=== PATIENT | male | born 1970 | race Caucasian/White ===

== ENCOUNTER → 2016-09-01 | Outpatient (REF) | payer OTHER | LOC: M LAB REF 17:00 | PROVIDERS: ATTEND Internal Medicine Pulmonary Disease | DX: R05 Cough (principal); Z86.718 Personal history of other venous thrombosis and embolism ==

== ENCOUNTER → 2016-09-09 | Outpatient (CLI) | payer OTHER ==
[2016-09-09 11:02] LABS: ALBUMIN 3.7 GM/DL (3.2-5.2); ALBUMIN/GLOBULIN RATIO 1.06 (1.00-1.93); ALKALINE PHOSPHATASE 92 U/L (45-117); ALT/SGPT 34 U/L (12-78); ANION GAP 6 MEQ/L (8-16); AST/SGOT 17 U/L (15-37); BILIRUBIN,TOTAL 0.2 MG/DL (0.2-1.0); BLOOD UREA NITROGEN 16 MG/DL (7-18); CALCIUM LEVEL 8.9 MG/DL (8.5-10.1); CARBON DIOXIDE LEVEL 30 MEQ/L (21-32); CHLORIDE LEVEL 105 MEQ/L (98-107); CHOLESTEROL LEVEL 202 MG/DL (<200); CREATININE FOR GFR 1.14 MG/DL (0.70-1.30); GLOMERULAR FILTRATION RATE > 60.0 (>60); GLUCOSE, FASTING 90 MG/DL (70-105); POTASSIUM SERUM 4.3 MEQ/L (3.5-5.1); SODIUM LEVEL 141 MEQ/L (136-145); TOTAL PROTEIN 7.2 GM/DL (6.4-8.2); TRIGLYCERIDES LEVEL 291 MG/DL (<150)
--- NOTE | 2016-09-10 08:01 | ECGEPIP ---
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
== END ==
LOC: M LAB 09:37
PROVIDERS: ATTEND Family Medicine Addiction Medicine
DX: R07.89 Other chest pain (principal); I26.99 Other pulmonary embolism without acute cor pulmonale

== ENCOUNTER 2017-04-30 07:26 | Emergency (ER) | payer OTHER ==
[~2017-04-30] VITALS: Ht 182.9 cm; Wt 100.0 kg
[2017-04-30] MEDS ORDERED: methylPREDNISolone INJ 125 MG/2 ML VIAL (J2930) IV ONE (07:45)
[2017-04-30] MEDS ORDERED: ASPIRIN 81 MG CHEW TABLET PO ONE (07:45)
[2017-04-30] MEDS ORDERED: ALBUTEROL SULFATE 2.5 MG/0.5 ML INH NEB SOLN INH ONE (07:45)
[2017-04-30] MEDS ORDERED: IPRATROPIUM 0.5MG/ALBUTEROL 2.5MG INH SOL UD 3ML (DUONEB)(J7620) NEB ONE ×2 (07:45→14:15)
[2017-04-30 07:58] LABS: BASO # 0.2 10^3/uL (0.0-0.2); BASO % 1.8 % (0.0-1.0); EOS # 0.4 10^3/uL (0.0-0.50); EOS % 3.5 % (0.0-3.0); IMMATURE GRANULOCYTE % 0.3 % (0-0); LYMPH % 19.3 % (24.0-44.0); MEAN CORPUSCULAR HEMOGLOBIN 28.3 pg (27.0-33.0); MEAN CORPUSCULAR HGB CONC 33.1 g/dl (32.0-36.5); MEAN CORPUSCULAR VOLUME 85.5 fl (80.0-96.0); MONO # 1.1 10^3/uL (0.0-0.8); MONO % 10.1 % (0.0-5.0); NEUTROPHILS # 6.8 10^3/uL (1.8-7.7); PLATELET COUNT, AUTOMATED 329 10^3/uL (150-450); RED CELL DISTRIBUTION WIDTH 13.9 % (11.5-14.5); WHITE BLOOD COUNT 10.4 10^3/uL (4.0-10.0)
[2017-04-30 08:01] LABS: INR 0.86
[2017-04-30 08:26] LABS: ALBUMIN 3.8 GM/DL (3.2-5.2); ALBUMIN/GLOBULIN RATIO 1.09 (1.00-1.93); ALKALINE PHOSPHATASE 92 U/L (45-117); ALT/SGPT 41 U/L (12-78); ANION GAP 9 MEQ/L (8-16); AST/SGOT 23 U/L (7-37); BILIRUBIN,DIRECT < 0.1 MG/DL (0.0-0.2); BILIRUBIN,TOTAL 0.3 MG/DL (0.2-1.0); BLOOD UREA NITROGEN 13 MG/DL (7-18); CALCIUM LEVEL 8.5 MG/DL (8.5-10.1); CARBON DIOXIDE LEVEL 24 MEQ/L (21-32); CHLORIDE LEVEL 108 MEQ/L (98-107); CREATININE FOR GFR 0.91 MG/DL (0.70-1.30); GLOMERULAR FILTRATION RATE > 60.0 (>60); GLUCOSE, FASTING 105 MG/DL (70-105); POTASSIUM SERUM 4.6 MEQ/L (3.5-5.1); SODIUM LEVEL 141 MEQ/L (136-145); THYROXINE (T4) 11.3 UG/DL (4.5-12.0); TOTAL PROTEIN 7.3 GM/DL (6.4-8.2)
[2017-04-30] MEDS ORDERED: ISOVUE-370 76% 100ML VIAL (Q9967) As Ordered ONE (08:37)
--- NOTE | 2017-04-30 09:42 | REP ---
CT of the chest with IV contrast for pleuritic pain: There are no comparison chest CT studies. There are no infiltrates or effusions. There is a 9 mm pleural-based lung nodule in the right lower lobe on image 51. There is a 7 mm lung nodule in lingula on image 40. There is a 6 ml lung nodule in the superior segment of the left upper lobe on image 42. There is a mm lung nodule inferiorly in the lingula on image 51. There is right hilar adenopathy measuring up to 9 mm short axis. There is left hilar adenopathy measuring up to 9 mm short axis. There is no mediastinal adenopathy. No axillary adenopathy. The thoracic aorta is unremarkable. Cardiac size is upper normal. No pericardial effusion. There are no emboli in the pulmonary trunk, central pulmonary arteries or pulmonary artery lobe or segment branches. The visualized upper abdominal contents are unremarkable. The adrenals are not imaged in entirety. Impression: No pulmonary emboli. Multiple lung nodules. Bilateral hilar adenopathy. No infiltrate or effusion. Signed by Perez Elizabeth MD 04/30/2017 09:34 A
--- NOTE | 2017-04-30 09:51 | REP ---
Portable chest, 08:02 a.m., single AP view, the patient semi upright: Comparison 04/20/2016. The lung cardenas are clear. The cardiac size is normal. The peggy, mediastinum, and bony thorax are unremarkable. Impression: Negative portable chest. Signed by Perez Elizabeth MD 04/30/2017 09:43 A
[2017-04-30] MEDS ORDERED: ZITHTAB PO (14:08)
[2017-04-30] MEDS ORDERED: VENTAER IN (14:08)
[2017-04-30] MEDS ORDERED: ALBU83IN INH (14:08)
[2017-04-30] MEDS ORDERED: PRED20TA PO (14:08)
[2017-04-30] MEDS ORDERED: BREO1INH INH (14:23)
[2017-04-30 14:59] VITALS: BP 141/74
--- NOTE | 2017-04-30 19:33 | ECGEPIP ---
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
--- NOTE | 2017-04-30 19:41 | ECGEPIP ---
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
== END 2017-04-30 15:02 | disposition home or self-care (01) ==
LOC: M ED 07:26
DX: J45.901 Unspecified asthma with (acute) exacerbation (principal); J98.4 Other disorders of lung; F17.210 Nicotine dependence, cigarettes, uncomplicated; Z79.01 Long term (current) use of anticoagulants; Z86.711 Personal history of pulmonary embolism; Z88.8 Allergy status to other drugs, medicaments and biological substances
CPT/HCPCS: 71010; 71275; 80048; 80076; 82550; 82553; 83605; 84436; 84443; 85025; 85379; 85610; 87040; 87804; 93005; 93041; 94640; 94760; 96374; 99285; J2930; Q9967

== ENCOUNTER 2017-08-27 02:53 | Emergency (ER) | payer OTHER ==
[2017-08-27] MEDS: MORPHINE 2 MG/ML 1ML SYRINGE (J2270) IV (03:45)
[2017-08-27] MEDS: CYCLOBENZAPRINE 10 MG TAB PO (03:45)
[2017-08-27] MEDS: KETOROLAC 30 MG/ML VIAL (J1885) IV (03:45)
[2017-08-27] MEDS: NORCO 5/325MG TABLET (BULK FOR ED) PO (04:58)
== END 2017-08-27 05:12 | disposition home or self-care (01) ==
LOC: M ED 02:53
DX: M54.5 Low back pain (principal); X50.0XXA Overexertion from strenuous movement or load, initial encounter; Y92.89 Other specified places as the place of occurrence of the external cause; F17.210 Nicotine dependence, cigarettes, uncomplicated; Z88.8 Allergy status to other drugs, medicaments and biological substances; Z79.52 Long term (current) use of systemic steroids; Z79.51 Long term (current) use of inhaled steroids; Z79.2 Long term (current) use of antibiotics
CPT/HCPCS: J1885

== ENCOUNTER → 2017-09-27 | Outpatient (REF) | payer OTHER ==
[2017-09-27 13:28] LABS: ALBUMIN 3.9 GM/DL (3.2-5.2); ALBUMIN/GLOBULIN RATIO 1.18 (1.00-1.93); ALKALINE PHOSPHATASE 85 U/L (45-117); ALT/SGPT 29 U/L (12-78); ANION GAP 5 MEQ/L (8-16); AST/SGOT 19 U/L (7-37); BILIRUBIN,TOTAL 0.3 MG/DL (0.2-1.0); BLOOD UREA NITROGEN 14 MG/DL (7-18); CALCIUM LEVEL 8.8 MG/DL (8.5-10.1); CARBON DIOXIDE LEVEL 27 MEQ/L (21-32); CHLORIDE LEVEL 111 MEQ/L (98-107); CHOLESTEROL LEVEL 186 MG/DL (<200); CHOLESTEROL RISK RATIO 6.413 (<5); CREATININE FOR GFR 0.91 MG/DL (0.70-1.30); GLOMERULAR FILTRATION RATE > 60.0 (>60); GLUCOSE, FASTING 96 MG/DL (70-100); HDL CHOLESTEROL 29 MG/DL (>40); LDL CHOLESTEROL 113.4 MG/DL (<100); NON-HDL-C 157 MG/DL; POTASSIUM SERUM 4.4 MEQ/L (3.5-5.1); SODIUM LEVEL 143 MEQ/L (136-145); TOTAL PROTEIN 7.2 GM/DL (6.4-8.2); TRIGLYCERIDES LEVEL 218 MG/DL (<150)
== END ==
LOC: M LAB REF 12:10
DX: E03.8 Other specified hypothyroidism (principal)
CPT/HCPCS: 84443

== ENCOUNTER → 2018-04-03 | Outpatient (REF) | payer OTHER ==
[2018-04-03 18:34] LABS: BASO # 0.2 10^3/uL (0.0-0.2); BASO % 1.7 % (0.0-1.0); EOS # 0.2 10^3/uL (0.0-0.50); HEMATOCRIT 46.4 % (42.0-52.0); HEMOGLOBIN 15.2 g/dl (13.5-17.5); IMMATURE GRANULOCYTE % 0.4 % (0-3.0); LYMPH # 3.2 10^3/uL (1.5-4.5); LYMPH % 27.7 % (24.0-44.0); MEAN CORPUSCULAR HEMOGLOBIN 27.9 pg (27.0-33.0); MEAN CORPUSCULAR HGB CONC 32.8 g/dl (32.0-36.5); MEAN CORPUSCULAR VOLUME 85.1 fl (80.0-96.0); MONO # 0.7 10^3/uL (0.0-0.8); MONO % 5.7 % (0.0-5.0); NEUTROPHILS # 7.3 10^3/uL (1.8-7.7); NEUTROPHILS % 62.5 % (36.0-66.0); PLATELET COUNT, AUTOMATED 339 10^3/uL (150-450); RED BLOOD COUNT 5.45 10^6/uL (4.30-6.10); RED CELL DISTRIBUTION WIDTH 13.3 % (11.5-14.5); WHITE BLOOD COUNT 11.7 10^3/uL (4.0-10.0)
== END ==
LOC: M LAB REF 17:19
DX: J45.40 Moderate persistent asthma, uncomplicated (principal)
CPT/HCPCS: 85025

== ENCOUNTER → 2019-01-03 | Outpatient (REF) | payer OTHER ==
[~2019-01-03] MED LIST: ALBU83IN INH; BREO1INH INH; BREO1INH3; CYCL10TA PO; HYDR-3715 PO; INCR1INH; NAPR-837 PO; NICO4GUM41; PRED20TA PO; VENTAER IN; ZITHTAB PO
[2019-01-03 14:17] LABS: ALBUMIN 3.9 GM/DL (3.2-5.2); ALT/SGPT 41 U/L (12-78); BILIRUBIN,TOTAL 0.3 MG/DL (0.2-1.0); BLOOD UREA NITROGEN 15 MG/DL (7-18); CALCIUM LEVEL 9.4 MG/DL (8.5-10.1); CARBON DIOXIDE LEVEL 28 MEQ/L (21-32); CHLORIDE LEVEL 108 MEQ/L (98-107); CHOLESTEROL LEVEL 155 MG/DL (<200); CREATININE FOR GFR 1.01 MG/DL (0.70-1.30); GLOMERULAR FILTRATION RATE > 60.0 (>60); GLUCOSE, FASTING 90 MG/DL (70-100); HDL CHOLESTEROL 31 MG/DL (>40); LDL CHOLESTEROL 88 MG/DL (<100); NON-HDL-C 124 MG/DL; POTASSIUM SERUM 4.5 MEQ/L (3.5-5.1); SODIUM LEVEL 142 MEQ/L (136-145); TOTAL PROTEIN 7.2 GM/DL (6.4-8.2); TRIGLYCERIDES LEVEL 182 MG/DL (<150)
== END ==
LOC: M LAB REF 13:04
PROVIDERS: ATTEND Nurse Practitioner Family
DX: E78.5 Hyperlipidemia, unspecified (principal)

== ENCOUNTER 2019-01-11 09:36 | Emergency (ER) | payer OTHER ==
[~2019-01-11] VITALS: Ht 182.9 cm; Wt 72.7 kg
[~2019-01-11 09:36] MED LIST changes: -BREO1INH3; -INCR1INH; -NICO4GUM41
[2019-01-11] MEDS ORDERED: BREO1INH3 (09:44)
[2019-01-11] MEDS ORDERED: INCR1INH (09:44)
[2019-01-11] MEDS ORDERED: NICO4GUM41 (09:44)
[2019-01-11] MEDS ORDERED: ISOVUE-370 76% 100ML VIAL (Q9967) As Ordered ONE (10:54)
[2019-01-11 11:10] LABS: ALBUMIN 4.2 GM/DL (3.2-5.2); ALT/SGPT 49 U/L (12-78); BILIRUBIN,TOTAL 0.5 MG/DL (0.2-1.0); BLOOD UREA NITROGEN 12 MG/DL (7-18); CALCIUM LEVEL 9.6 MG/DL (8.5-10.1); CARBON DIOXIDE LEVEL 25 MEQ/L (21-32); CHLORIDE LEVEL 106 MEQ/L (98-107); CK-MB VALUE MASS < 1.0 NG/ML (<3.6); CPK CREATINE PHOSPHOKINASE 130 U/L (39-308); CREATININE FOR GFR 1.15 MG/DL (0.70-1.30); GLOMERULAR FILTRATION RATE > 60.0 (>60); GLUCOSE, FASTING 101 MG/DL (70-100); MB/CK RELATIVE INDEX 0.77 (< OR =4); NT-PRO BNP 8 PG/ML (<125); POTASSIUM SERUM 4.6 MEQ/L (3.5-5.1); SODIUM LEVEL 139 MEQ/L (136-145); TOTAL PROTEIN 7.6 GM/DL (6.4-8.2); TROPONIN I < 0.02 NG/ML (< 0.10)
[2019-01-11 12:38] VITALS: BP 117/84
--- NOTE | 2019-01-11 13:03 | REP ---
CT of the chest with IV contrast, pulmonary artery angiography protocol: There are no emboli in the pulmonary trunk or central pulmonary arteries. There are no emboli in the pulmonary lobe or segment branches. There are no infiltrates or pleural effusions. There is a 6 ml lung nodule on image 34 in the lingula. This measured 7 mm previously. There is a 6 mm nodule in the superior segment of the left lower lobe on image 38. This measured 6 mm previously. On a prior study there was a 9 mm nodule in the right lower lobe, pleural-based. This nodule has resolved and is no longer present. The right hilar adenopathy identified previously has resolved. The left hilar adenopathy identified previously has resolved. There is no mediastinal or axillary adenopathy. The thoracic aorta is unremarkable. Cardiac size is normal. No pericardial effusion. In the visualized upper abdomen there is wall thickening of the visualized colonic splenic flexure. This may represent colitis in the appropriate clinical setting. There also appears to be gastric wall thickening compatible with gastritis in the appropriate clinical setting. However, the gastric wall is unchanged from the prior study. Impression: There are no pulmonary emboli. There are lung nodules as described. No enlarging lung nodules. The previous hilar adenopathy has resolved. There are findings compatible with colitis in the splenic flexure of the colon, in the appropriate clinical context. The gastric wall appears edematous, however this is unchanged from the prior study. Electronically Signed by Perez Elizabeth MD 01/11/2019 12:55 P
--- NOTE | 2019-01-11 19:29 | ECGEPIP ---
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
== END 2019-01-11 12:39 | disposition home or self-care (01) ==
LOC: M ED 09:36
DX: J44.9 Chronic obstructive pulmonary disease, unspecified (principal); I45.4 Nonspecific intraventricular block; R91.8 Other nonspecific abnormal finding of lung field; Z87.891 Personal history of nicotine dependence; Z79.899 Other long term (current) drug therapy; Z88.8 Allergy status to other drugs, medicaments and biological substances
CPT/HCPCS: 71275; 80047; 80053; 82550; 82553; 83880; 93005; 99284; Q9967

== ENCOUNTER → 2019-04-12 | Outpatient (REF) | payer OTHER, MEDICAID ==
[~2019-04-12] MED LIST changes: +BREO1INH3; +INCR1INH; +NICO4GUM41
[2019-04-12 13:39] LABS: ALBUMIN 3.9 GM/DL (3.2-5.2); ALT/SGPT 45 U/L (12-78); BILIRUBIN,TOTAL 0.5 MG/DL (0.2-1.0); BLOOD UREA NITROGEN 14 MG/DL (7-18); CALCIUM LEVEL 9.8 MG/DL (8.5-10.1); CARBON DIOXIDE LEVEL 29 MEQ/L (21-32); CHLORIDE LEVEL 106 MEQ/L (98-107); CHOLESTEROL LEVEL 162 MG/DL (<200); CREATININE FOR GFR 1.06 MG/DL (0.70-1.30); GLOMERULAR FILTRATION RATE > 60.0 (>56); GLUCOSE, FASTING 88 MG/DL (70-100); HDL CHOLESTEROL 36 MG/DL (>40); LDL CHOLESTEROL 81 MG/DL (<100); NON-HDL-C 126 MG/DL; POTASSIUM SERUM 4.2 MEQ/L (3.5-5.1); SODIUM LEVEL 143 MEQ/L (136-145); TOTAL PROTEIN 7.3 GM/DL (6.4-8.2); TRIGLYCERIDES LEVEL 223 MG/DL (<150)
[2019-04-12 13:44] LABS: HEMOGLOBIN A1c 6.1 %
== END ==
LOC: M LAB REF 12:53
PROVIDERS: ATTEND Nurse Practitioner Family
DX: E78.5 Hyperlipidemia, unspecified (principal); Z00.01 Encounter for general adult medical examination with abnormal findings

== ENCOUNTER → 2019-07-01 | Outpatient (REF) | payer OTHER ==
[2019-07-01 13:35] LABS: BASO # 0.2 10^3/uL (0.0-0.2); BASO % 1.5 % (0.0-1.0); EOS # 0.3 10^3/uL (0.0-0.5); EOS % 3.3 % (0.0-3.0); HEMATOCRIT 45.2 % (42.0-52.0); HEMOGLOBIN 14.8 g/dl (13.5-17.5); LYMPH # 3.3 10^3/uL (1.5-5.0); LYMPH % 32.1 % (24.0-44.0); MEAN CORPUSCULAR HEMOGLOBIN 27.7 pg (27.0-33.0); MEAN CORPUSCULAR HGB CONC 32.7 g/dl (32.0-36.5); MEAN CORPUSCULAR VOLUME 84.6 fl (80.0-96.0); MONO # 0.9 10^3/uL (0.0-0.8); MONO % 8.4 % (0.0-5.0); NEUTROPHILS # 5.7 10^3/uL (1.5-8.5); NEUTROPHILS % 54.4 % (36.0-66.0); PLATELET COUNT, AUTOMATED 314 10^3/uL (150-450); RED BLOOD COUNT 5.34 10^6/uL (4.30-6.10); WHITE BLOOD COUNT 10.4 10^3/uL (4.0-10.0)
[2019-07-04 00:07] LABS: D001-IgE D pteronyssinus <0.10 kU/L (Class 0); E001-IgE Cat Epith/Dander < 0.10 kU/L (Class 0); E005-IgE Dog Dander < 0.10 kU/L (Class 0); G002-IgE Bermuda Grass < 0.10 kU/L (Class 0); G008-IgE Kentucky Bluegrass < 0.10 kU/L (Class 0); M001-IgE Penicillium chrysogen < 0.10 kU/L (Class 0); M002 IgE Cladosporium herbaru < 0.10 kU/L (Class 0); M003 IgE Aspergillus fumigatu < 0.10 kU/L (Class 0); M006-IgE Alternaria alternata < 0.10 kU/L (Class 0); T001-IgE Maple/Box Elder < 0.10 kU/L (Class 0); T003-IgE Common Silver Birch < 0.10 kU/L (Class 0); T006-IgE Cedar, Mountain < 0.10 kU/L (Class 0); T007-IgE Oak, White < 0.10 kU/L (Class 0); T008-IgE Elm, American < 0.10 kU/L (Class 0); T015-IgE Ash, White < 0.10 kU/L (Class 0); T041-IgE Hickory, White < 0.10 kU/L (Class 0); T070-IgE White Mulberry < 0.10 kU/L (Class 0); W001-IgE Ragweed, Short < 0.10 kU/L (Class 0); W009-IgE Plantain, English < 0.10 kU/L (Class 0); W014-IgE Pigweed, Rough < 0.10 kU/L (Class 0); W018-IgE Sheep Sorrel < 0.10 kU/L (Class 0)
== END ==
LOC: M LAB REF 12:48
PROVIDERS: ATTEND Internal Medicine Pulmonary Disease
DX: J45.40 Moderate persistent asthma, uncomplicated (principal)

== ENCOUNTER → 2019-07-03 | Outpatient (REF) | payer OTHER, MEDICAID ==
[2019-07-03 13:51] LABS: HEMOGLOBIN A1c 6.2 %
== END ==
LOC: M LAB REF 12:54
PROVIDERS: ATTEND Physician Assistant
DX: R73.03 Prediabetes (principal)

== ENCOUNTER 2019-07-15 13:51 | Inpatient (IN) | payer MEDICAID, OTHER ==
[~2019-07-15] VITALS: Ht 182.9 cm; Wt 110.1 kg
[~2019-07-15 13:51] MED LIST changes: -BREO1INH3; +BREO1INH3 INH; -INCR1INH; +INCR1INH INH
[2019-07-15 15:58] LABS: HEMATOCRIT 43.3 % (42.0-52.0); HEMOGLOBIN 14.4 g/dl (13.5-17.5); MEAN CORPUSCULAR HEMOGLOBIN 27.7 pg (27.0-33.0); MEAN CORPUSCULAR HGB CONC 33.3 g/dl (32.0-36.5); MEAN CORPUSCULAR VOLUME 83.4 fl (80.0-96.0); PLATELET COUNT, AUTOMATED 274 10^3/uL (150-450); RED BLOOD COUNT 5.19 10^6/uL (4.30-6.10); WHITE BLOOD COUNT 8.7 10^3/uL (4.0-10.0)
[2019-07-15 16:28] LABS: AMPHETAMINES LEVEL URINE NEGATIVE (NEGATIVE); BARBITURATES URINE NEGATIVE (NEGATIVE); BENZODIAZEPINES URINE NEGATIVE (NEGATIVE); CANNABINOIDS URINE NEGATIVE (NEGATIVE); COCAINE METABOLITE URINE NEGATIVE (NEGATIVE); METHADONE URINE NEGATIVE (NEGATIVE); OPIATES URINE NEGATIVE (NEGATIVE); PHENCYCLIDINE URINE NEGATIVE (NEGATIVE)
[2019-07-15] MEDS ORDERED: CLON0.5T2 PO (16:35)
[2019-07-15] MEDS ORDERED: CLON0.2T PO (16:35)
[2019-07-15] MEDS ORDERED: PARO15TA PO (16:35)
[2019-07-15] MEDS ORDERED: RISP2TAB3 PO (16:35)
[2019-07-15 16:36] LABS: ACETAMINOPHEN LEVEL < 2.0 UG/ML (10.0-30.0); ALBUMIN 4.3 GM/DL (3.2-5.2); ALT/SGPT 47 U/L (12-78); BILIRUBIN,DIRECT 0.1 MG/DL (0.0-0.2); BILIRUBIN,TOTAL 0.5 MG/DL (0.2-1.0); BLOOD UREA NITROGEN 11 MG/DL (7-18); CALCIUM LEVEL 9.2 MG/DL (8.5-10.1); CARBON DIOXIDE LEVEL 29 MEQ/L (21-32); CHLORIDE LEVEL 107 MEQ/L (98-107); CREATININE FOR GFR 1.06 MG/DL (0.70-1.30); ETHYL ALCOHOL (ETHANOL) < 0.003 % (0.000-0.010); GLOMERULAR FILTRATION RATE > 60.0 (>56); GLUCOSE, FASTING 88 MG/DL (70-100); POTASSIUM SERUM 4.6 MEQ/L (3.5-5.1); SALICYLATE LEVEL < 1.7 MG/DL (5.0-30.0); SODIUM LEVEL 141 MEQ/L (136-145); TOTAL PROTEIN 7.3 GM/DL (6.4-8.2)
[2019-07-15] MEDS ORDERED: clonazePAM 0.5 MG TAB PO ONE (16:45)
[2019-07-15] MEDS ORDERED: cloNIDine 0.1 MG TAB PO ONE (19:15)
[2019-07-15] MEDS ORDERED: risperiDONE 2 MG TAB PO ONE (19:15)
[2019-07-15] MEDS ORDERED: CLON0.3T PO (20:41)
--- NOTE | 2019-07-15 21:10 | ECGEPIP ---
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
[2019-07-16] MEDS ORDERED: clonazePAM 0.5 MG TAB PO ONE (06:45)
[2019-07-16] MEDS ORDERED: risperiDONE 2 MG TAB PO ONE (07:00)
[2019-07-16] MEDS ORDERED: PARoxetine 10MG TABLET PO ONE (07:00)
[2019-07-16] MEDS: ADVAIR HFA 230/21MCG INHALER INH SCH ×2 (08:35→20:00)
[2019-07-16] MEDS ORDERED: ACETAMINOPHEN TAB 650MG DOSE (2X325MG) PO PRN (13:30)
[2019-07-16] MEDS ORDERED: traZODone 50 MG TAB PO PRN (13:30)
[2019-07-16] MEDS ORDERED: MAALOX 30 ML SUSP *UDC PO PRN (13:30)
[2019-07-16] MEDS ORDERED: MOM 30ML SUSPENSION UDC PO PRN (13:30)
[2019-07-16 14:37] VITALS: BP 118/68
[2019-07-16] MEDS: risperiDONE 2 MG TAB PO SCH (20:09)
[2019-07-16] MEDS ORDERED: cloNIDine 0.2 MG TAB PO SCH (21:00)
[2019-07-16] MEDS ORDERED: cloNIDine 0.1 MG TAB PO SCH (21:00)
[2019-07-17 06:29] VITALS: BP 112/68
[2019-07-17] MEDS: SYMBICORT 160/4.5MCG INHALER 6GM INH SCH ×2 (08:00→20:00)
[2019-07-17] MEDS: ADVAIR HFA 230/21MCG INHALER INH SCH ×2 (08:14→21:46)
[2019-07-17] MEDS: risperiDONE 2 MG TAB PO SCH (08:16)
--- NOTE | 2019-07-17 10:30 | MHHPEPDOC ---
[facility] History & Physical History and Physical DATE OF ADMISSION: Jul 16, 2019 at 13:21 New Patient Lokesh Chawla MRN: N/A Date of : N/A Date of Service: 07/17/2019 Chief Complaint "I got into bad argument." History of Present Illness The patient is a 49-year-old man with a reported history of bipolar, presents to [facility] after getting into an argument with his . She had reported that he asked for a divorce where he became increasingly upset and had considered taking an overdose of hsi medications. He then called the crisis line instead, where he was brought in and admitted out of an abundance of caution. The patient is met with, describes a history of adjustment and multiple different medications that make it difficult for him to cope. He reports having a history of trauma, with hypervigilance, nightmares related to his time in long term. He reports having negative cognition about the future and had been considered for EMDR at [facility]. The patient reports having a history of bipolar disorder with a reported mild manic episode earlier this last several months with a rapidly alternating mood. He reports that he is amenable to staying and wishes to have his medications changed. He reports side effects of erectile dysfunction and sedation on his current medications. Review Of Systems Depression: The patient reports having a history of depressed mood associated with loss of interest, hopelessness and other neurovegetative symptoms lasting longer than 2 weeks. Anxiety: Trauma related to triggers. Azeb: As above with 5 days or more of euphoria associated with decreased need for sleep, impulsivity and goal-directed behavior. Psychotic: The patient denies any experiences of auditory or visual hallucinations. They deny any episodes of paranoia or delusional thinking in the past Trauma: As above. Borderline: Not screened at this time. Past Psychiatric History Has a history of bipolar disorder currently on risperidone and a large dose of clonidine for nightmares. Reports having psychiatric admissions in the distant past. Currently, follows up with [facility]. Reports suicide attempt last in 1982 by cutting wrists. Allergies Please see below. Family Psychiatric History The patient denies/is unaware any history of mental health history including addictions and suicide. Social History The patient reports growing up in a fairly chaotic household, where he left home at 15. He reports he has traveled across the [place] multiple times and has generally lived a nomadic life. He reports having multiple children by different women, but had recently his girlfriend 2 years ago. He reports that he is currently caring for her and her children from another marriage. He reports that he has had difficulties in his marriage. He reports being incarcerated in long term for 10 years for rape earlier in his life. Substance Abuse History Patient reports having a history of alcohol use and drug use in the past, but denies any problems currently. Medical History Reports having a history of pulmonary problems and a PE several years ago. Mental Status Examination General: Well dressed with good hygiene Speech: Spontaneous and fluid Thought processes: Linear and logical MSK: Smooth and coordinated gait, no signs of tremors or involuntary orofacial movements Thought content: Future orientated Abstract reasoning, and computation: Intact Description of associations: Intact Description of abnormal or psychotic thoughts: Denies any suicidal or homicidal ideation. Denies any auditory or visual hallucinations. Does not appear to be responding to internal stimuli. Does not appear to be endorsing any bizarre or paranoid ideation. Judgment: fair Insight: fair Orientation: Alert and orientated 3 Cognition: Grossly normal Recent and remote memory: Intact Attention span and concentration: Intact Fund of knowledge: Adequate Mood: "okay" Affect: Mildly dysthymic. Diagnoses Bipolar disorder, unspecified. PTSD, chronic. Assessment and Plan Bipolar disorder: Cross taper risperidone with Abilify, with 1 mg BID and 5 mg of Abilify respectively at night tonight. Ambien 5 mg nightly for sleep. PTSD: We will slowly taper down clonidine as it is an unreasonable amount and quite dangerous, we will lower to 0.4 mg nightly, Ambien to help with sleep and advocation for therapy. Disposition The patient will need a further inpatient admission due to his severely com plicated mental health history and difficult to control PTSD, his mood variation is intense and he has multiple risk factors. He will be converted to a voluntary status as he wishes to continue. Problem List 1. Risk for suicide. 2. Depression. 3. Azeb. Initial Treatment Plan 1. Patient was admitted on a 9.39 legal status. 2. Complete history was obtained. 3. With patients permission, family will be contacted and database will be expanded. 4. Patients medication regimen will be reviewed and changed accordingly. 5. Patient will be provided with protected environment. 6. Patient will be treated with individual, group, and milieu therapies. 7. Patient will receive supportive psych-education. 8. Discharge planning will commence immediately. 9. Outpatient follow-up treatment will be strongly recommended. 10. The initial treatment plan will focus initially on: Estimated Length Of Stay 4 days. Time Spent 70 minutes with greater than 50% of time on counseling/coordination of care. Monday Vital Signs Vital Signs Date Time Temp Pulse Resp B/P (MAP) Pulse Ox O2 Delivery O2 Flow Rate FiO2 07/17/19 06:29 98.2 79 18 112/68 (83) 07/16/19 14:37 96 Room Air Medications Scheduled Clonidine HCl (Clonidine HCl) 0.2 Mg Tablet, 0.2 MG PO QHS, (Reported) 0.5MG TOTAL QHS Clonidine HCl (Clonidine HCl) 0.3 Mg Tablet, 0.3 MG PO QHS, (Reported) 0.5MG TOTAL QHS Fluticasone/Vilanterol (Breo Ellipta 200-25 Mcg INH) 1 Each Blst.w.dev, 1 PUFF INH DAILY, (Reported) Paroxetine (Paroxetine HCl) 30 Mg Tablet, 30 MG PO DAILY, (Reported) Risperidone (Risperidone) 2 Mg Tablet, 2 MG PO BID, (Reported) Umeclidinium [place] (Incruse Ellipta) 62.5 Mcg Blst.w.dev, 1 PUFF INH DAILY, (Reported) Scheduled PRN Clonazepam (Clonazepam) 0.5 Mg Tablet, 0.5 MG PO BID PRN for ANXIETY/AGITATION, (Reported) Allergies Coded Allergies: aspirin (Verified Adverse Reaction, Unknown, 01/11/19) LORNE ARREGUIN DO Jul 17, 2019 10:30
--- NOTE | 2019-07-17 10:59 | HPEPDOC ---
General Date of Admission Jul 16, 2019 at 13:21 Date of Service: Jul 17, 2019 Chief Complaint The patient is a 49-year-old male admitted with a reason for visit of Unspecified Depressive Disorder. Source: Patient Exam Limitations: No limitations Associated Symptoms: Denies Symptoms History of Present Illness Mr. Chawla is a 49-year-old male who was admitted to the [facility] for thoughts of suicide. Patient reported that he has been arguing with his . He threatened suicide in order to get away from her. He denies any thoughts of harming himself or harming any others at this time. Patient reported that he had a PE 5 years ago. He was treated appropriately and continues to see Dr. Zhou. He has noticed a rash on his left foot that he noticed this morning. The rash does not itch nor is it painful. Home Medications Scheduled Clonidine HCl (Clonidine HCl) 0.2 Mg Tablet, 0.2 MG PO QHS, (Reported) 0.5MG TOTAL QHS Clonidine HCl (Clonidine HCl) 0.3 Mg Tablet, 0.3 MG PO QHS, (Reported) 0.5MG TOTAL QHS Fluticasone/Vilanterol (Breo Ellipta 200-25 Mcg INH) 1 Each Blst.w.dev, 1 PUFF INH DAILY, (Reported) Paroxetine (Paroxetine HCl) 30 Mg Tablet, 30 MG PO DAILY, (Reported) Risperidone (Risperidone) 2 Mg Tablet, 2 MG PO BID, (Reported) Umeclidinium [place] (Incruse Ellipta) 62.5 Mcg Blst.w.dev, 1 PUFF INH DAILY, (Reported) Scheduled PRN Clonazepam (Clonazepam) 0.5 Mg Tablet, 0.5 MG PO BID PRN for ANXIETY/AGITATION, (Reported) Allergies Coded Allergies: aspirin (Verified Adverse Reaction, Unknown, 01/11/19) Past Medical History Medical History Pulmonary embolism, 5 years ago, treated to completion. Pulmonary nodule with restrictive lung disease per the medical record. Continues to follow Dr. Zhou outpatient. Depression. 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 Asymptomatic Review of Systems Constitutional: Denies: Chills, Fever, Night Sweats Eyes: Denies: Pain ENT: Denies: Head Aches Skin: Denies: Rash Pulmonary: Denies: Dyspnea, Cough Cardiovascular: Denies: Chest Pain, Palpitations, Orthopnea, Paroxysmal Noc. Dyspnea, Edema, Lt Headedness Gastrointestinal: Denies: Nausea, Vomiting, Abdominal Pain, Diarrhea Genitourinary: Denies: Dysuria, Retention Hematologic: Denies: Bruising, Bleeding Excessively Musculoskeletal: Denies: Neck Pain, Back Pain, Joint Pain, Muscle Pain, Spasms Neurological: Denies: Weakness, Numbness, Change in speech, Confusion Psych: Reports: Mood Normal; Denies: Depression, Memory Issues, Thoughts of Self Harm, Thoughts of Harming Other Physical Examination General Exam: Positive: Alert, Cooperative, No Acute Distress Eye Exam: Positive: PERRLA, Conjunctiva & lids normal, EOMI; Negative: Sclera icteric ENT Exam: Positive: Atraumatic, Mucous membr. moist/pink, Pharynx Normal Neck Exam: Positive: Supple; Negative: JVD, thyromegaly Chest Exam: Positive: Clear to auscultation, Normal air movement Heart Exam: Positive: Rate Normal, Regular Rhythm, Normal S1, Normal S2; Negative: Murmurs, Rubs Telemetry: Positive: No significant arrhythmia Abdomen Exam: Positive: Normal bowel sounds, Soft; Negative: Tenderness Extremity Exam: Positive: Normal pulses; Negative: Clubbing, Cyanosis, Edema Skin Exam: Positive: Nl turgor and temperature, Rash (Contact dermatitis L foot ) Neuro Exam: Positive: Normal Gait, Normal Speech, Strength at 5/5 X4 ext, Cranial Nerves 3-12 NL Psych Exam: Positive: Mood NL, Oriented x 3 Vital Signs Vital Signs Date Time Temp Pulse Resp B/P (MAP) Pulse Ox O2 Delivery O2 Flow Rate FiO2 07/17/19 06:29 98.2 79 18 112/68 (83) 07/16/19 14:37 96 Room Air Assessment/Plan Mr. Chawla is a 49-year-old male who was admitted to the [facility] for thoughts of suicide. Patient reported that he has been arguing with his . He threatened suicide in order to get away from her. He denies any thoughts of harming himself or harming any others at this time. Patient reported that he had a PE 5 years ago. He was treated appropriately and continues to see Dr. Zhou. He has noticed a rash on his left foot that he noticed this morning. The rash does not itch nor is it painful. Patient has a past medical history which includes: Pulmonary embolism (5 years ago. Treated to completion.), Pulmonary nodule, with restrictive lung disease per the medical record (follows Dr. Zhou), depression. #1. Depression. Management per psychiatry. #2. Restrictive lung disease. At-home inhalers include Breo and Incruse which are not available on hospital formulary. Patient also reports that he uses a nebulizer at home for acute symptoms. Start DuoNeb every 6 hours prn. Continue inpatient Advair to replace Breo. Start Symbicort to replace Incruse. #3. Remote history of pulmonary embolism. - Previously treated to completion. Asymptomatic for several years and also at this time. #4. Contact dermatitis. Start triamcinolone cream to the area and apply for up to 2 weeks Medicine will sign off at this time. Please feel free to reconsult as needed. Plan / VTE VTE Prophylaxis Ordered?: No JOEY KIRBY PA-C Jul 17, 2019 10:59
[2019-07-17] MEDS ORDERED: NICOTINE POLACRILEX 2 MG GUM PO PRN (11:00)
[2019-07-17] MEDS: IPRATROPIUM 0.5MG/ALBUTEROL 2.5MG INH SOL UD 3ML (DUONEB)(J7620) NEB PRN ×3 (12:00→21:35)
[2019-07-17] MEDS: TRIAMCINOLONE ACETONIDE 0.025 % 80 GM CREAM TOP SCH ×2 (13:07→20:05)
[2019-07-17] MEDS: NICOTINE POLACRILEX 2 MG GUM PO PRN ×2 (14:55→20:03)
[2019-07-17 16:25] VITALS: BP 109/62
[2019-07-17] MEDS: risperiDONE 1 MG TAB PO SCH (20:04)
[2019-07-17] MEDS ORDERED: cloNIDine 0.2 MG TAB PO SCH (21:00)
[2019-07-17] MEDS: zolPIDEM TARTRATE 5 MG TAB PO PRN (22:01)
[2019-07-18 07:13] VITALS: BP 123/68
[2019-07-18] MEDS: SYMBICORT 160/4.5MCG INHALER 6GM INH SCH (08:00)
[2019-07-18] MEDS: risperiDONE 1 MG TAB PO SCH (08:41)
[2019-07-18] MEDS: ADVAIR HFA 230/21MCG INHALER INH SCH ×2 (08:41→20:00)
[2019-07-18] MEDS: TRIAMCINOLONE ACETONIDE 0.025 % 80 GM CREAM TOP SCH ×2 (08:42→20:05)
--- NOTE | 2019-07-18 08:42 | MHIPNPDOC ---
[facility] Progress Note Progress Note Inpatient Progress Note Lokesh Chawla MRN: N/A Date of : N/A Date of Service: 07/18/2019 History of Present Illness The patient is a 49-year-old man with a reported history of bipolar, presents to [facility] after getting into an argument with his . She had reported that he asked for a divorce where he became increasingly upset and had considered taking an overdose of hsi medications. He then called the crisis line instead, where he was brought in and admitted out of an abundance of caution. The patient is met with, describes a history of adjustment and multiple different medications that make it difficult for him to cope. He reports having a history of trauma, with hypervigilance, nightmares related to his time in correction. He reports having negative cognition about the future and had been considered for EMDR at [facility]. The patient reports having a history of bipolar disorder with a reported mild manic episode earlier this last several months with a rapidly alternating mood. He reports that he is amenable to staying and wishes to have his medications changed. He reports side effects of erectile dysfunction and sedation on his current medications. Interval History The patient is met with today. He reports that he is doing somewhat better, and tolerating the new medications well. He reports he has had no ill-effects from the changeover, he reports that the Ambien is fairly helpful for his sleep and helps him do quite well. Review Of Systems General: Denies fever or appetite changes Cardiovascular: Denies Chest pain or palpations GI: Denies Nausea, vomiting, or bowel changes Respiratory: Denies shortness of breath or cough Neuro: Denies dizziness, tremors Derm: Denies any rashes or pruritus : Denies any dysuria or urinary problems MSK: Denies any muscle tightness or stiffness HEENT: Denies any vision changes or headaches Psychotherapy None on this visit. Vital Signs Reviewed. Mental Status Examination General: Well dressed with good hygiene Speech: Spontaneous and fluid Thought processes: Linear and logical MSK: Smooth and coordinated gait, no signs of tremors or involuntary orofacial movements Thought content: Future orientated Abstract reasoning, and computation: Intact Description of associations: Intact Description of abnormal or psychotic thoughts: Denies any suicidal or homicidal ideation. Denies any auditory or visual hallucinations. Does not appear to be responding to internal stimuli. Does not appear to be endorsing any bizarre or paranoid ideation. Judgment: fair Insight: fair Orientation: Alert and orientated 3 Cognition: Grossly normal Recent and remote memory: Intact Attention span and concentration: Intact Fund of knowledge: Adequate Mood: "okay" Affect: Mildly dysthymic. Diagnoses Bipolar disorder, unspecified. PTSD, chronic. Assessment and Plan Bipolar disorder: Continue decrease of risperidone down to 0.5 mg BID and increase Abilify to 10 mg nightly. Continue Ambien 5 mg for sleep and 50 of trazodone if needed for extra sedation. PTSD: Continue to lower clonidine to 0.4 to 0.3 mg nightly tonight. No signs of withdrawal or dysregulation of blood pressure. Disposition The patient will need a further inpatient admission due to his severely complicated mental health history and difficult to control PTSD, his mood variation is intense and he has multiple risk factors. He was converted to a voluntary status as he wishes to continue. Time Spent 15 minutes. Vital Signs Vital Signs Date Time Temp Pulse Resp B/P (MAP) Pulse Ox O2 Delivery O2 Flow Rate FiO2 07/18/19 07:13 97.7 82 16 123/68 (86) 07/16/19 14:37 96 Room Air Current Medications Current Medications Medications (Trade) Dose Ordered Sig/Chago Route PRN Reason Start Time Stop Time Status Last Admin Dose Admin Acetaminophen (Tylenol Tab) 650 mg Q6HP PRN PO HEADACHE or DISCOMFORT 07/16/19 13:30 Al Hydrox/Mg Hydrox/Simethicone (Mylanta) 30 ml Q4HP PRN PO HEARTBURN/INDIGESTION 07/16/19 13:30 Albuterol/ Ipratropium (Duoneb (Ipr 0.5mg/Alb 2.5mg)) 3 ml Q6HP PRN NEB SOB/WHEEZING 07/17/19 11:00 07/17/19 18:25 Aripiprazole (AbiLIFY) 5 mg QHS PO 07/17/19 21:00 07/17/19 20:02 Budesonide/ Formoterol Fumarate (Symbicort 160/ 4.5mcg) 2 puff RBID INH 07/17/19 08:00 Clonazepam (KlonoPIN) 0.5 mg BID PRN PO ANXIETY/AGITATION 07/16/19 13:45 Clonidine HCl (Catapres) 0.2 mg QHS PO 07/16/19 21:00 07/17/19 12:22 DC 07/16/19 20:10 Clonidine HCl (Catapres) 0.3 mg QHS PO 07/16/19 21:00 07/17/19 12:30 DC 07/16/19 20:10 Clonidine HCl (Catapres) 0.4 mg QHS PO 07/17/19 21:00 07/17/19 20:04 Home Med (Med Rec Complete!) ASDIRECTED XX 07/15/19 20:45 07/15/19 20:44 DC Magnesium Hydroxide (Milk Of Magnesia) 30 ml DAILYPRN PRN PO CONSTIPATION 07/16/19 13:30 Nicotine (Nicorette) 2 mg Q4HP PRN PO NICOTINE WITHDRAWAL 07/17/19 11:00 07/17/19 14:51 DC 07/17/19 11:42 Nicotine (Nicorette) 4 mg Q2HP PRN PO NICOTINE WITHDRAWAL 07/17/19 15:00 07/17/19 20:03 Risperidone (RisperDAL) 1 mg BID PO 07/17/19 21:00 07/17/19 20:04 Risperidone (RisperDAL) 2 mg BID PO 07/16/19 21:00 07/17/19 12:22 DC 07/17/19 08:16 Salmeterol Xinafoate/ Fluticasone (Advair Hfa 230/ ) 2 puff RBID INH 07/16/19 08:00 07/17/19 21:46 Trazodone HCl (Desyrel) 50 mg QHSP PRN PO INSOMNIA 07/16/19 13:30 07/16/19 20:10 Triamcinolone Acetonide (Kenalog 0.025% Cream) Left foot. Use for 2 weeks. BID TOP 07/17/19 09:00 07/31/19 08:59 07/17/19 20:05 Zolpidem Tartrate (Ambien) 5 mg QHSP PRN PO sleep 07/17/19 12:30 07/17/19 22:01 Allergies Coded Allergies: aspirin (Verified Adverse Reaction, Unknown, 01/11/19) LORNE ARREGUIN DO Jul 18, 2019 08:42
[2019-07-18] MEDS: NICOTINE POLACRILEX 2 MG GUM PO PRN ×4 (08:43→21:29)
[2019-07-18] MEDS: clonazePAM 0.5 MG TAB PO PRN (11:51)
[2019-07-18 16:21] VITALS: BP 122/77
[2019-07-18] MEDS: IPRATROPIUM 0.5MG/ALBUTEROL 2.5MG INH SOL UD 3ML (DUONEB)(J7620) NEB PRN ×2 (18:23→21:46)
[2019-07-18] MEDS: risperiDONE 0.5 MG TAB PO SCH (20:06)
[2019-07-18] MEDS ORDERED: cloNIDine 0.1 MG TAB PO SCH (21:00)
[2019-07-18] MEDS: zolPIDEM TARTRATE 5 MG TAB PO PRN (22:11)
[2019-07-19 06:41] VITALS: BP 128/76
[2019-07-19] MEDS: clonazePAM 0.5 MG TAB PO PRN ×2 (08:23→17:38)
[2019-07-19] MEDS: TRIAMCINOLONE ACETONIDE 0.025 % 80 GM CREAM TOP SCH ×2 (08:23→20:04)
[2019-07-19] MEDS: NICOTINE POLACRILEX 2 MG GUM PO PRN ×4 (08:24→22:11)
[2019-07-19] MEDS: risperiDONE 0.5 MG TAB PO SCH (08:25)
[2019-07-19] MEDS: ADVAIR HFA 230/21MCG INHALER INH SCH ×2 (08:25→20:00)
--- NOTE | 2019-07-19 10:50 | MHIPNPDOC ---
[facility] Progress Note Progress Note Inpatient Progress Note Lokesh Chawla MRN: N/A Date of : N/A Date of Service: 07/19/2019 History of Present Illness The patient is a 49-year-old man with a reported history of bipolar, presents to [facility] after getting into an argument with his . She had reported that he asked for a divorce where he became increasingly upset and had considered taking an overdose of hsi medications. He then called the crisis line instead, where he was brought in and admitted out of an abundance of caution. The patient is met with, describes a history of adjustment and multiple different medications that make it difficult for him to cope. He reports having a history of trauma, with hypervigilance, nightmares related to his time in [place]. He reports having negative cognition about the future and had been considered for EMDR at [facility]. The patient reports having a history of bipolar disorder with a reported mild manic episode earlier this last several months with a rapidly alternating mood. He reports that he is amenable to staying and wishes to have his medications changed. He reports side effects of erectile dysfunction and sedation on his current medications. Interval History The patient is met with today. He reports he has had about the potential loss of his relationship with his . He reports that he has begun to think about alternatives and report some appropriate grief. He reports that otherwise he has been feeling better and his hopelessness has been resolving. He reports his moods are much more controlled and his anger much easier to manage. He's had no behavioral problems and attends groups very frequently. In general, staff report that he is very good at managing his emotions at this time. The patient reports feeling more hopeful and is beginning to plan the next steps of his life at this time. Review Of Systems General: Denies fever or appetite changes Cardiovascular: Denies Chest pain or palpations GI: Denies Nausea, vomiting, or bowel changes Respiratory: Denies shortness of breath or cough Neuro: Denies dizziness, tremors Derm: Denies any rashes or pruritus : Denies any dysuria or urinary problems MSK: Denies any muscle tightness or stiffness HEENT: Denies any vision changes or headaches Psychotherapy None on this visit. Vital Signs Reviewed. Mental Status Examination General: Well dressed with good hygiene Speech: Spontaneous and fluid Thought processes: Linear and logical MSK: Smooth and coordinated gait, no signs of tremors or involuntary orofacial movements Thought content: Future orientated Abstract reasoning, and computation: Intact Description of associations: Intact Description of abnormal or psychotic thoughts: Denies any suicidal or homicidal ideation. Denies any auditory or visual hallucinations. Does not appear to be responding to internal stimuli. Does not appear to be endorsing any bizarre or paranoid ideation. Judgment: fair Insight: fair Orientation: Alert and orientated 3 Cognition: Grossly normal Recent and remote memory: Intact Attention span and concentration: Intact Fund of knowledge: Adequate Mood: "okay" Affect: More euthymic Diagnoses Bipolar disorder, unspecified. PTSD, chronic. Assessment and Plan Bipolar disorder: Discontinue risperidone. Continue Abilify at 10 mg nightly. Continue Ambien 5 mg for sleep and trazodone as augmentation. Patient wishes to have the injectable given on Monday. PTSD: Continuing to lower clonidine to 0.2 mg nightly, no signs of withdrawal or dysregulation of blood pressure. Disposition The patient will be retained over the weekend with further titrations and then discharged on Monday to [facility]. Time Spent 15 minutes. Monday Vital Signs Vital Signs Date Time Temp Pulse Resp B/P (MAP) Pulse Ox O2 Delivery O2 Flow Rate FiO2 07/19/19 06:41 99.2 59 16 128/76 (93) Room Air 07/16/19 14:37 96 Current Medications Current Medications Medications (Trade) Dose Ordered Sig/Chago Route PRN Reason Start Time Stop Time Status Last Admin Dose Admin Acetaminophen (Tylenol Tab) 650 mg Q6HP PRN PO HEADACHE or DISCOMFORT 07/16/19 13:30 Al Hydrox/Mg Hydrox/Simethicone (Mylanta) 30 ml Q4HP PRN PO HEARTBURN/INDIGESTION 07/16/19 13:30 Albuterol/ Ipratropium (Duoneb (Ipr 0.5mg/Alb 2.5mg)) 3 ml Q6HP PRN NEB SOB/WHEEZING 07/17/19 11:00 07/18/19 21:46 Aripiprazole (AbiLIFY) 5 mg QHS PO 07/17/19 21:00 07/18/19 09:49 DC 07/17/19 20:02 Aripiprazole (AbiLIFY) 10 mg QHS PO 07/18/19 21:00 07/18/19 20:07 Budesonide/ Formoterol Fumarate (Symbicort 160/ 4.5mcg) 2 puff RBID INH 07/17/19 08:00 07/18/19 12:15 DC Clonazepam (KlonoPIN) 0.5 mg BID PRN PO ANXIETY/AGITATION 07/16/19 13:45 07/19/19 08:23 Clonidine HCl (Catapres) 0.2 mg QHS PO 07/16/19 21:00 07/17/19 12:22 DC 07/16/19 20:10 Clonidine HCl (Catapres) 0.3 mg QHS PO 07/16/19 21:00 07/17/19 12:30 DC 07/16/19 20:10 Clonidine HCl (Catapres) 0.3 mg QHS PO 07/18/19 21:00 07/18/19 20:06 Clonidine HCl (Catapres) 0.4 mg QHS PO 07/17/19 21:00 07/18/19 09:49 DC 07/17/19 20:04 Home Med (Med Rec Complete!) ASDIRECTED XX 07/15/19 20:45 07/15/19 20:44 DC Magnesium Hydroxide (Milk Of Magnesia) 30 ml DAILYPRN PRN PO CONSTIPATION 07/16/19 13:30 Nicotine (Nicorette) 2 mg Q4HP PRN PO NICOTINE WITHDRAWAL 07/17/19 11:00 07/17/19 14:51 DC 07/17/19 11:42 Nicotine (Nicorette) 4 mg Q2HP PRN PO NICOTINE WITHDRAWAL 07/17/19 15:00 07/19/19 08:24 Risperidone (RisperDAL) 0.5 mg BID PO 07/18/19 21:00 07/19/19 08:25 Risperidone (RisperDAL) 1 mg BID PO 07/17/19 21:00 07/18/19 09:49 DC 07/18/19 08:41 Risperidone (RisperDAL) 2 mg BID PO 07/16/19 21:00 07/17/19 12:22 DC 07/17/19 08:16 Salmeterol Xinafoate/ Fluticasone (Advair Hfa 230/ 21) 2 puff RBID INH 07/16/19 08:00 07/19/19 08:25 Trazodone HCl (Desyrel) 50 mg QHSP PRN PO INSOMNIA 07/16/19 13:30 07/16/19 20:10 Triamcinolone Acetonide (Kenalog 0.025% Cream) Left foot. Use for 2 weeks. BID TOP 07/17/19 09:00 07/31/19 08:59 07/19/19 08:23 Zolpidem Tartrate (Ambien) 5 mg QHSP PRN PO sleep 07/17/19 12:30 07/18/19 22:11 Allergies Coded Allergies: aspirin (Verified Adverse Reaction, Unknown, 01/11/19) LORNE ARREGUIN DO Jul 19, 2019 10:50
[2019-07-19] MEDS: IPRATROPIUM 0.5MG/ALBUTEROL 2.5MG INH SOL UD 3ML (DUONEB)(J7620) NEB PRN ×2 (11:34→22:01)
[2019-07-19 16:10] VITALS: BP 137/86
[2019-07-19] MEDS: cloNIDine 0.2 MG TAB PO SCH (20:04)
[2019-07-19] MEDS: zolPIDEM TARTRATE 5 MG TAB PO PRN (22:10)
[2019-07-20 05:50] VITALS: BP 106/69
[2019-07-20] MEDS: ADVAIR HFA 230/21MCG INHALER INH SCH ×2 (08:21→20:00)
[2019-07-20] MEDS: TRIAMCINOLONE ACETONIDE 0.025 % 80 GM CREAM TOP SCH ×2 (08:22→20:05)
[2019-07-20] MEDS: NICOTINE POLACRILEX 2 MG GUM PO PRN ×6 (08:23→20:04)
[2019-07-20] MEDS: IPRATROPIUM 0.5MG/ALBUTEROL 2.5MG INH SOL UD 3ML (DUONEB)(J7620) NEB PRN (10:10)
[2019-07-20] MEDS: clonazePAM 0.5 MG TAB PO PRN (15:37)
[2019-07-20 16:07] VITALS: BP 137/88
[2019-07-20] MEDS: cloNIDine 0.2 MG TAB PO SCH (20:04)
[2019-07-20] MEDS: zolPIDEM TARTRATE 5 MG TAB PO PRN (21:22)
[2019-07-21 06:21] VITALS: BP 142/84
[2019-07-21] MEDS: TRIAMCINOLONE ACETONIDE 0.025 % 80 GM CREAM TOP SCH ×2 (08:34→20:22)
[2019-07-21] MEDS: ADVAIR HFA 230/21MCG INHALER INH SCH ×2 (08:35→20:00)
[2019-07-21] MEDS: NICOTINE POLACRILEX 2 MG GUM PO PRN ×4 (08:35→19:29)
[2019-07-21] MEDS: clonazePAM 0.5 MG TAB PO PRN (08:35)
--- NOTE | 2019-07-21 09:12 | MHIPN ---
DATE OF SERVICE: 07/20/2019 The patient states "I'm doing okay." He said he is sleeping good with Ambien. He is tolerating the ongoing decrease of his clonidine. Says that his doctor is planning to put him on Abilify Maintena before he discharges him. MENTAL STATUS EXAM: This patient is alert and oriented times three. Eye contact is fairly good. He is verbally spontaneous. There is no formal thought disorder noted. His mood is "okay." Affect constricted but appropriate to mood. He is not psychotic, suicidal or homicidal. Concentration is fair. Memory is intact. Insight and judgment is fair. DIAGNOSIS: Bipolar disorder, unspecified. Posttraumatic stress disorder (PTSD) chronic. TREATMENT PLAN: We will continue to further evaluate and monitor the patient for continued resolution of suicidal ideations and continued stabilization of his mood.
[2019-07-21] MEDS: IPRATROPIUM 0.5MG/ALBUTEROL 2.5MG INH SOL UD 3ML (DUONEB)(J7620) NEB PRN ×2 (13:20→20:09)
[2019-07-21 16:18] VITALS: BP 126/79
[2019-07-21 20:20] VITALS: BP 126/79
[2019-07-21] MEDS: cloNIDine 0.2 MG TAB PO SCH (20:20)
[2019-07-21] MEDS: zolPIDEM TARTRATE 5 MG TAB PO PRN (21:00)
[2019-07-22 06:24] VITALS: BP 133/76
[2019-07-22] MEDS: TRIAMCINOLONE ACETONIDE 0.025 % 80 GM CREAM TOP SCH (08:34)
[2019-07-22] MEDS: ADVAIR HFA 230/21MCG INHALER INH SCH (08:36)
[2019-07-22] MEDS: clonazePAM 0.5 MG TAB PO PRN (08:37)
[2019-07-22] MEDS: NICOTINE POLACRILEX 2 MG GUM PO PRN ×2 (08:38→11:57)
[2019-07-22] MEDS ORDERED: CLONI1TA PO (10:49)
[2019-07-22] MEDS ORDERED: ABIL1TAB11 PO (10:49)
[2019-07-22] MEDS ORDERED: AMBI5TAB PO (10:49)
[2019-07-22] MEDS ORDERED: NICO2GUM PO (10:49)
--- NOTE | 2019-07-22 10:54 | MHDSPDOC ---
[facility] Discharge Summary Discharge Summary DATE OF ADMISSION: Jul 16, 2019 at 13:21 DATE OF DISCHARGE: 07/22/19 Discharge Lokesh Chawla MRN: N/A Date of : N/A Date of Service: 07/22/2019 Diagnoses Bipolar disorder, unspecified. PTSD, chronic. History of Present Illness The patient is a 49-year-old man with a reported history of bipolar, presents to [facility] after getting into an argument with his . She had reported that he asked for a divorce where he became increasingly upset and had considered taking an overdose of hsi medications. He then called the crisis line instead, where he was brought in and admitted out of an abundance of caution. The patient is met with, describes a history of adjustment and multiple different medications that make it difficult for him to cope. He reports having a history of trauma, with hypervigilance, nightmares related to his time in detention. He reports having negative cognition about the future and had been cons idered for EMDR at [facility]. The patient reports having a history of bipolar disorder with a reported mild manic episode earlier this last several months with a rapidly alternating mood. He reports that he is amenable to staying and wishes to have his medications changed. He reports side effects of erectile dysfunction and sedation on his current medications. Consultants Involved Hospitalist/PCP screening Treatment and Progress On The Unit The patient was admitted to the inpatient unit. He was subsequently discontinued on his Paxil as it was unhelpful. Additionally, he was cross tapered off of his risperidone and clonidine onto Abilify up to a total of 10 mg nightly with positive effects on his mood and ability to control his anger. The patient was titrated down to 0.2 mg of clonidine and given a taper to complete as an outpatient. The patient did well on the unit and was in behavioral control. He attended many groups and made significant psychotherapeutic process/progress on our unit. The patient did well and demonstrated improved insight into his situation. He was started on Ambien 5 mg nightly for sleep with positive eff ects. Additionally, he was lowered on his clonazepam, changed to as needed with the intention to discontinue upon discharge. The patient was interested in long- acting injectable Abilify, and was given a dose of it prior to his discharge. Discharge Assessment 49-year-old man with a history of what appears to be PTSD and potentially bipolar disorder, presents on an unusual combination of medications, he is given appropriate treatment and cross tapered off of high-dose clonidine and risperidone, reducing any potential side effects that he had had namely erectile dysfunction, causing the patient to do much better and improve in terms of his anger management and ability to cope with stress. The patient at the time of discharge did not meet criteria for involuntary admission/extension due to having a normal mental status exam, fair insight into the situation, They are engaged in the discharge process, as well as being friendly and amenable in behavioral control and havent been engaging in any observed concerning behavior or ideation recently. They decline voluntary extension/admission at this time and must be discharged in good josephine, as Im unable to make a case for holding the patient against their will. They may have historical risk factors of admissions and other interactions with psychiatry however, those are not modifiable from a clinical perspective. The patient will need to be discharged in good josephine. Mental Status Examination General: Well dressed with good hygiene Speech: Spontaneous and fluid Thought processes: Linear and logical MSK: Smooth and coordinated gait, no signs of tremors or involuntary orofacial movements Thought content: Future orientated Abstract reasoning, and computation: Intact Description of associations: Intact Description of abnormal or psychotic thoughts: Denies any suicidal or homicidal ideation. Denies any auditory or visual hallucinations. Does not appear to be responding to internal stimuli. Does not appear to be endorsing any bizarre or paranoid ideation. Judgment: fair Insight: fair Orientation: Alert and orientated 3 Cognition: Grossly normal Recent and remote memory: Intact Attention span and concentration: Intact Fund of knowledge: Adequate Mood: "okay" Affect: Euthymic with a full range Follow Up The social work team worked during the predischarge meeting in order to evaluate for further issues of lethality address them fully before discharge. They worked on safety planning with the patient's family members in order to ensure that the patient will have a safe and effective discharge. Time Spent The amount of time spent in the coordination of care for this patient was approximately 45 minutes. Monday Vital Signs/I&Os Vital Signs Date Time Temp Pulse Resp B/P (MAP) Pulse Ox O2 Delivery O2 Flow Rate FiO2 07/22/19 06:24 98.5 80 16 133/76 (95) 07/19/19 06:41 Room Air 3/3/20 14:37 96 Medications Scheduled Aripiprazole (Abilify) 5 Mg Tablet, 10 MG PO QHS for mood for 7 Days, #7 Aripiprazole (Abilify Maintena) 400 Mg Suser.syr, 400 MG IM Q4WKS for mood for 28 Days, #400 Clonidine Hcl (Clonidine HCl) 0.1 Mg Tablet, 0.1 MG PO QPM for sleep for 7 Days, #7 Fluticasone/Vilanterol (Breo Ellipta 200-25 Mcg INH) 1 Each Blst.w.dev, 1 PUFF INH DAILY, (Reported) Umeclidinium Kyle (Incruse Ellipta) 62.5 Mcg Blst.w.dev, 1 PUFF INH DAILY, (Reported) Scheduled PRN Nicotine Polacrilex (Nicotine Gum) 2 Mg Gum, 4 MG PO Q2HP PRN for NICOTINE WITHDRAWAL for 30 Days, #90 Zolpidem Tartrate (Ambien) 5 Mg Tablet, 5 MG PO QHSP PRN for sleep for 7 Days, #7 Allergies Coded Allergies: aspirin (Verified Adverse Reaction, Unknown, 01/11/19) LORNE ARREGUIN DO Jul 22, 2019 10:54
[2019-07-22] MEDS ORDERED: ABIL1INJ2 IM (11:21)
[2019-07-22] MEDS ORDERED: ARIPiprazole MONOHYDRATE 400 MG INJ (ABILIFY)(J0401) IM ONE (13:00)
== END 2019-07-22 12:25 | disposition home or self-care (01) | DRG 753 ==
LOC: M ED 13:51 → M ED INP 07-16 13:21 → M PSY 07-16 14:26
PROVIDERS: ADMIT Psychiatry & Neurology Addiction Medicine; ATTEND Psychiatry & Neurology Addiction Medicine
DX: F31.9 Bipolar disorder, unspecified (principal); F43.12 Post-traumatic stress disorder, chronic; L25.9 Unspecified contact dermatitis, unspecified cause; R91.1 Solitary pulmonary nodule; Z79.899 Other long term (current) drug therapy; Z88.6 Allergy status to analgesic agent; Z63.0 Problems in relationship with spouse or partner; Z86.711 Personal history of pulmonary embolism; Z87.891 Personal history of nicotine dependence

== ENCOUNTER → 2020-08-21 | Outpatient (CLI) | payer OTHER ==
[~2020-08-21] MED LIST changes: +ABIL1INJ2 IM; +ABIL1TAB11 PO; +AMBI5TAB PO; +CLON0.2T PO; +CLON0.3T PO; +CLON0.5T2 PO; +CLONI1TA PO; +CYCL-707 PO; -CYCL10TA PO; +NICO2GUM PO; +PARO30TA4 PO; +RISP-9 PO
[2020-08-21 09:24] LABS: ALBUMIN 3.5 GM/DL (3.2-5.2); ALT/SGPT 54 U/L (12-78); BILIRUBIN,TOTAL 0.4 MG/DL (0.2-1.0); BLOOD UREA NITROGEN 16 MG/DL (7-18); CARBON DIOXIDE LEVEL 31 MEQ/L (21-32); CHLORIDE LEVEL 107 MEQ/L (98-107); CREATININE FOR GFR 0.87 MG/DL (0.70-1.30); GLOMERULAR FILTRATION RATE > 60.0 (>56); GLUCOSE, FASTING 98 MG/DL (70-100); POTASSIUM SERUM 4.4 MEQ/L (3.5-5.1); SODIUM LEVEL 140 MEQ/L (136-145)
[2020-08-21 09:28] LABS: BASO # 0.2 10^3/uL (0.0-0.2); BASO % 1.4 % (0.0-1.0); EOS # 0.6 10^3/uL (0.0-0.5); EOS % 4.6 % (0.0-3.0); HEMATOCRIT 48.3 % (42.0-52.0); HEMOGLOBIN 15.2 g/dl (13.5-17.5); LYMPH # 2.8 10^3/uL (1.5-5.0); LYMPH % 23.6 % (24.0-44.0); MEAN CORPUSCULAR HEMOGLOBIN 28.1 pg (27.0-33.0); MEAN CORPUSCULAR HGB CONC 31.5 g/dl (32.0-36.5); MEAN CORPUSCULAR VOLUME 89.3 fl (80.0-96.0); MONO % 8.2 % (2.0-8.0); NEUTROPHILS # 7.4 10^3/uL (1.5-8.5); NEUTROPHILS % 61.2 % (36.0-66.0); PLATELET COUNT, AUTOMATED 275 10^3/uL (150-450); RED BLOOD COUNT 5.41 10^6/uL (4.30-6.10)
[2020-08-21 09:32] LABS: CHOLESTEROL RISK RATIO 5.903 (<5); FREE T4 1.07 NG/DL (0.76-1.46); THYROID STIMULATING HORMONE 1.97 uIU/ML (0.358-3.740)
--- NOTE | 2020-08-21 10:38 | ECGEPIP ---
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
== END ==
LOC: M LAB 08:12
PROVIDERS: ATTEND Family Medicine
DX: F31.9 Bipolar disorder, unspecified (principal)

== ENCOUNTER → 2020-09-07 | Outpatient (CLI) | payer OTHER ==
[2020-09-07 13:50] LABS: ALBUMIN 3.8 GM/DL (3.2-5.2); ALT/SGPT 43 U/L (12-78); BILIRUBIN,DIRECT < 0.1 MG/DL (0.0-0.2); BILIRUBIN,TOTAL 0.2 MG/DL (0.2-1.0); LITHIUM LEVEL < 0.20 MEQ/L (0.60-1.20); TOTAL PROTEIN 7.5 GM/DL (6.4-8.2)
== END ==
LOC: M LAB 11:41
PROVIDERS: ATTEND Nurse Practitioner Family
DX: F31.9 Bipolar disorder, unspecified (principal)

== ENCOUNTER → 2020-10-19 | Outpatient (CLI) | payer OTHER ==
[2020-10-19 15:40] LABS: ALBUMIN 3.8 GM/DL (3.2-5.2); ALT/SGPT 49 U/L (12-78); BILIRUBIN,TOTAL 0.3 MG/DL (0.2-1.0); BLOOD UREA NITROGEN 15 MG/DL (7-18); CALCIUM LEVEL 9.2 MG/DL (8.5-10.1); CARBON DIOXIDE LEVEL 28 MEQ/L (21-32); CHLORIDE LEVEL 108 MEQ/L (98-107); CREATININE FOR GFR 0.83 MG/DL (0.70-1.30); GLOMERULAR FILTRATION RATE > 60.0 (>56); GLUCOSE, FASTING 86 MG/DL (70-100); LITHIUM LEVEL 0.23 MEQ/L (0.60-1.20); POTASSIUM SERUM 4.2 MEQ/L (3.5-5.1); SODIUM LEVEL 141 MEQ/L (136-145); TOTAL PROTEIN 7.2 GM/DL (6.4-8.2)
== END ==
LOC: M LAB 13:34
PROVIDERS: ATTEND Nurse Practitioner Family
DX: F31.9 Bipolar disorder, unspecified (principal)

== ENCOUNTER → 2020-11-19 | Outpatient (CLI) | payer OTHER ==
[2020-11-19 09:18] LABS: LITHIUM LEVEL 0.47 MEQ/L (0.60-1.20); THYROID STIMULATING HORMONE 3.07 uIU/ML (0.358-3.740)
== END ==
LOC: M LAB 08:16
PROVIDERS: ATTEND Nurse Practitioner Family
DX: F31.9 Bipolar disorder, unspecified (principal)

== ENCOUNTER → 2020-12-31 | Outpatient (CLI) | payer OTHER | LOC: M LAB 12:35 | PROVIDERS: ATTEND Nurse Practitioner Family | DX: F31.9 Bipolar disorder, unspecified (principal) ==

== ENCOUNTER → 2020-12-31 | Outpatient (CLI) | payer OTHER ==
--- NOTE | 2020-12-31 16:34 | REP ---
INDICATION: NICOTINE DEPENDENCE. COMPARISON: 01/11/[address] angio chest TECHNIQUE: Axial noncontrast images from the thoracic inlet to the upper abdomen using low-dose lung screening technique (LDCT). As per the protocol only lung window images were sent to the read station for interpretation FINDINGS: There is minimal biapical pleuroparenchymal scarring. There are a total of 4 pulmonary nodules 1 in the right upper lobe, 1 in the left upper lobe, 1 in the lingula, and 1 in the left lower lobe. All of these nodules were present on the latest prior CT of 01/11/2019, however, the examinations are technically different. When the technical differences are taken into consideration there is no appreciable significant change. There are a few curvilinear bibasilar densities consistent with chronic fibrotic and/or subsegmental atelectatic changes. I see no evidence of a definite new abnormal nodule, mass, or opacity. Grossly, the mediastinum and pulmonary peggy are unchanged. Grossly, the imaged upper abdomen and imaged osseous structures are unchanged. IMPRESSION: Multiple pulmonary nodules as described above. Although there is no appreciable change since examinations are so technically different I recommend a six-month follow-up low-dose screening CT examination of the lungs. <Electronically signed by Jez Viera > 12/31/20 2029
== END ==
LOC: M RAD 12:32
PROVIDERS: ATTEND Pediatrics
DX: R91.8 Other nonspecific abnormal finding of lung field (principal)

== ENCOUNTER → 2021-02-02 | Outpatient (CLI) | payer OTHER ==
[2021-02-02 09:24] LABS: ALBUMIN 3.5 GM/DL (3.2-5.2); BILIRUBIN,DIRECT 0.1 MG/DL (0.0-0.2); BILIRUBIN,TOTAL 0.4 MG/DL (0.2-1.0); TOTAL PROTEIN 7.3 GM/DL (6.4-8.2); VALPROIC ACID (DEPAKOTE) 60.2 UG/ML (50.0-100.0)
== END ==
LOC: M LAB 08:06
PROVIDERS: ATTEND Nurse Practitioner Family
DX: F31.9 Bipolar disorder, unspecified (principal)

== ENCOUNTER → 2021-04-05 | Outpatient (CLI) | payer OTHER ==
[2021-04-05 09:44] LABS: ALBUMIN 3.6 GM/DL (3.2-5.2); ALT/SGPT 43 U/L (12-78); BILIRUBIN,DIRECT < 0.1 MG/DL (0.0-0.2); BILIRUBIN,TOTAL 0.3 MG/DL (0.2-1.0); TOTAL PROTEIN 7.4 GM/DL (6.4-8.2); VALPROIC ACID (DEPAKOTE) 53.4 UG/ML (50.0-100.0)
== END ==
LOC: M LAB 08:44
PROVIDERS: ATTEND Nurse Practitioner Family
DX: F31.9 Bipolar disorder, unspecified (principal)

== ENCOUNTER → 2021-07-07 | Outpatient (CLI) | payer OTHER | LOC: M CARPUL 14:46 | PROVIDERS: ATTEND Pediatrics | DX: J44.9 Chronic obstructive pulmonary disease, unspecified (principal) ==

== ENCOUNTER → 2021-08-24 | Outpatient (CLI) | payer OTHER | LOC: M LAB 09:11 | PROVIDERS: ATTEND Pediatrics | DX: R73.03 Prediabetes (principal) ==

== ENCOUNTER → 2021-08-24 | Outpatient (CLI) | payer OTHER | LOC: M LAB 09:13 | PROVIDERS: ATTEND Nurse Practitioner Family | DX: F31.9 Bipolar disorder, unspecified (principal) ==

== ENCOUNTER → 2021-09-21 | Outpatient (CLI) | payer OTHER | LOC: M LAB 08:52 | PROVIDERS: ATTEND Family Medicine | DX: F31.9 Bipolar disorder, unspecified (principal) ==

== ENCOUNTER → 2022-03-09 | Outpatient (REF) | payer OTHER ==
[~2022-03-09] MED LIST changes: +ALBU2.5V10 INH; -ALBU83IN INH
[2022-03-09 16:16] LABS: ALBUMIN 3.8 GM/DL (3.2-5.2); ALT/SGPT 42 U/L (12-78); BILIRUBIN,TOTAL 0.6 MG/DL (0.2-1.0); BLOOD UREA NITROGEN 16 MG/DL (7-18); CALCIUM LEVEL 9.1 MG/DL (8.5-10.1); CARBON DIOXIDE LEVEL 29 MEQ/L (21-32); CHLORIDE LEVEL 102 MEQ/L (98-107); CHOLESTEROL LEVEL 202 MG/DL (<200); CHOLESTEROL RISK RATIO 5.941 (<5); CREATININE FOR GFR 0.86 MG/DL (0.70-1.30); GLOMERULAR FILTRATION RATE > 60.0 (>56); GLUCOSE, FASTING 87 MG/DL (70-100); HDL CHOLESTEROL 34 MG/DL (>40); LDL CHOLESTEROL 106 MG/DL (<100); NON-HDL-C 168 MG/DL; POTASSIUM SERUM 4.5 MEQ/L (3.5-5.1); SODIUM LEVEL 137 MEQ/L (136-145); TOTAL PROTEIN 7.3 GM/DL (6.4-8.2); TRIGLYCERIDES LEVEL 312 MG/DL (<150); VALPROIC ACID (DEPAKOTE) < 3.0 UG/ML (50.0-100.0)
[2022-03-09 20:15] LABS: HEMOGLOBIN A1c 6.2 %
== END ==
LOC: M LAB REF 12:26
PROVIDERS: ATTEND Pediatrics
DX: E78.5 Hyperlipidemia, unspecified (principal); E03.9 Hypothyroidism, unspecified; R73.03 Prediabetes; Z51.81 Encounter for therapeutic drug level monitoring

== ENCOUNTER → 2022-09-06 | Outpatient (REF) | payer OTHER ==
[2022-09-06 13:04] LABS: BASO # 0.2 10^3/uL (0.0-0.2); BASO % 1.6 % (0.0-1.0); EOS # 0.5 10^3/uL (0.0-0.5); EOS % 4.2 % (0.0-3.0); HEMATOCRIT 53.3 % (42.0-52.0); LYMPH # 3.3 10^3/uL (1.5-5.0); LYMPH % 27.7 % (24.0-44.0); MEAN CORPUSCULAR HEMOGLOBIN 28.6 pg (27.0-33.0); MEAN CORPUSCULAR HGB CONC 31.9 g/dl (32.0-36.5); MEAN CORPUSCULAR VOLUME 89.6 fl (80.0-96.0); MONO # 0.7 10^3/uL (0.0-0.8); MONO % 5.5 % (2.0-8.0); NEUTROPHILS # 7.2 10^3/uL (1.5-8.5); NEUTROPHILS % 60.5 % (36.0-66.0); PLATELET COUNT, AUTOMATED 295 10^3/uL (150-450); RED BLOOD COUNT 5.95 10^6/uL (4.30-6.10); WHITE BLOOD COUNT 11.9 10^3/uL (4.0-10.0)
[2022-09-06 13:33] LABS: ALBUMIN 3.6 G/DL (3.2-5.2); ALKALINE PHOSPHATASE 97 U/L (46-116); ALT/SGPT 53 U/L (7.0-40); AST/SGOT 34 U/L (<34); BILIRUBIN,TOTAL 0.6 MG/DL (0.3-1.2); BLOOD UREA NITROGEN 10 MG/DL (9-23); CALCIUM LEVEL 9.4 MG/DL (8.5-10.1); CARBON DIOXIDE LEVEL 30 MMOL/L (20-31); CHLORIDE LEVEL 104 MMOL/L (98-107); CHOLESTEROL LEVEL 205 MG/DL (<200); CHOLESTEROL RISK RATIO 7.16 (<5); CREATININE FOR GFR 0.94 MG/DL (0.70-1.30); GLOMERULAR FILTRATION RATE > 60.0 (>56); GLUCOSE, FASTING 92 MG/DL (60-100); HDL CHOLESTEROL 28.6 MG/DL (>40); LDL CHOLESTEROL 119.6 MG/DL (<100); NON-HDL-C 176.4 MG/DL; SODIUM LEVEL 139 MMOL/L (136-145); TOTAL PROTEIN 6.9 G/DL (5.7-8.2); TRIGLYCERIDES LEVEL 284 MG/DL (<150)
[2022-09-06 13:35] LABS: THYROID STIMULATING HORMONE 1.367 uIU/ML (0.55-4.78)
== END ==
LOC: M LAB REF 12:26
PROVIDERS: ATTEND Pediatrics
DX: Z11.59 Encounter for screening for other viral diseases (principal); E30.9 Disorder of puberty, unspecified; E78.5 Hyperlipidemia, unspecified; Z12.5 Encounter for screening for malignant neoplasm of prostate

== ENCOUNTER 2023-07-06 12:21 | Emergency (ER) | payer OTHER ==
[~2023-07-06] VITALS: Ht 182.9 cm; Wt 114.6 kg
[2023-07-06 13:50] LABS: BASO # 0.2 10^3/uL (0.0-0.2); BASO % 1.6 % (0.0-1.0); EOS # 0.4 10^3/uL (0.0-0.5); EOS % 3.5 % (0.0-3.0); HEMOGLOBIN 15.7 g/dl (13.5-17.5); LYMPH # 3.3 10^3/uL (1.5-5.0); LYMPH % 27.7 % (24.0-44.0); MEAN CORPUSCULAR HEMOGLOBIN 27.8 pg (27.0-33.0); MEAN CORPUSCULAR HGB CONC 32.7 g/dl (32.0-36.5); MEAN CORPUSCULAR VOLUME 85.1 fl (80.0-96.0); MONO # 0.6 10^3/uL (0.0-0.8); MONO % 5.3 % (2.0-8.0); NEUTROPHILS # 7.3 10^3/uL (1.5-8.5); NEUTROPHILS % 61.5 % (36.0-66.0); PLATELET COUNT, AUTOMATED 402 10^3/uL (150-450); RED BLOOD COUNT 5.64 10^6/uL (4.30-6.10); WHITE BLOOD COUNT 11.8 10^3/uL (4.0-10.0)
[2023-07-06 13:58] LABS: ERYTHROCYTE SEDIMENTATION RATE 65 mm/hr (0-20)
[2023-07-06 14:22] LABS: BLOOD UREA NITROGEN 12 MG/DL (9-23); CALCIUM LEVEL 9.2 MG/DL (8.5-10.1); CARBON DIOXIDE LEVEL 28 MMOL/L (20-31); CHLORIDE LEVEL 105 MMOL/L (98-107); CREATININE FOR GFR 0.78 MG/DL (0.70-1.30); GLOMERULAR FILTRATION RATE > 60.0 (>56); GLUCOSE, FASTING 113 MG/DL (60-100); POTASSIUM SERUM 4.3 MMOL/L (3.5-5.1); SODIUM LEVEL 137 MMOL/L (136-145)
[2023-07-06] MEDS ORDERED: ISOVUE-370 76% 100ML VIAL As Ordered ONE (14:53)
[2023-07-06 15:17] LABS: RSV AMPLIFICATION NEGATIVE (NEGATIVE)
[2023-07-06] MEDS ORDERED: VANCOMYCIN HCL 2,000 MG in D5W 500 ML IV ONE (16:15)
[2023-07-06] MEDS: VANCOMYCIN HCL 1,000 MG, VIAL MATE ADAPTER 1 EACH in D5W 250 ML IV ONE ×2 (16:39→17:20)
[2023-07-06] MEDS ORDERED: ABIL1INJ2 IM (18:13)
[2023-07-06] MEDS ORDERED: DOXA1TAB49 PO (18:13)
[2023-07-06] MEDS ORDERED: HYDR50TA70 PO (18:13)
[2023-07-06] MEDS ORDERED: LUMA42CA PO (18:13)
[2023-07-06] MEDS ORDERED: CLON1TAB8 PO (18:13)
[2023-07-06] MEDS ORDERED: ALBU8.5H INH (18:13)
[2023-07-06] MEDS ORDERED: HOME MED LIST COMPLETE! XX SCH (18:15)
[2023-07-06] MEDS: DALBAVANCIN 1,500 MG in D5W 250 ML IV ONE (18:32)
[2023-07-06 19:38] VITALS: BP 120/80; TEMP 97.9; O2SAT 99
== END 2023-07-06 19:50 | disposition home or self-care (01) ==
LOC: M ED 12:21
DX: L03.115 Cellulitis of right lower limb (principal); L03.116 Cellulitis of left lower limb; J45.909 Unspecified asthma, uncomplicated; J44.9 Chronic obstructive pulmonary disease, unspecified; F17.210 Nicotine dependence, cigarettes, uncomplicated; Z88.8 Allergy status to other drugs, medicaments and biological substances; Z79.899 Other long term (current) drug therapy; Z79.51 Long term (current) use of inhaled steroids
CPT/HCPCS: 73590; 75635; 80047; 80048; 83605; 85025; 85652; 86140; 87040; 87077; 87186; 87631; 93970; 96365; 96366; 99284; J0875; J3370; Q9967